=== PATIENT | male | born 1975 | race Two or more races ===

== ENCOUNTER 2016-10-15 15:06 | Inpatient (IN) | payer OTHER ==
[2016-10-15 17:32] VITALS: BMI 28.6
--- NOTE | 2016-10-15 20:11 | HP ---
CIWA Score - CIWA Score Nausea/Vomitin-Mild Nausea/No Vomiting Muscle Tremors: 3 Anxiety: 3 Agitation: 3 Paroxysmal Sweats: 2 Orientation: 0-Oriented Tacttile Disturbances: 0-None Auditory Disturbances: 0-None Visual Disturbances: 0-None Headache: 3-Moderate CIWA-Ar Total Score: 15 Admission ROS S - HPI Chief Complaint: WITHDRAWAL SX Allergies/Adverse Reactions: Allergies Allergy/AdvReac Type Severity Reaction Status Date / Time No Known Allergies Allergy Verified 10/15/16 18:23 History of Present Illness: 40 YEARS OLD MALE WITH LONG HISTORY OF ALCOHOL NICOTINE DEPENDENCE, DENIES MEDICAL ISSUE DENIES PSYCHIATRIC ISSUE IS ADMITTED TO DETOX Exam Limitations: No Limitations - Ebola screening Have you traveled outside of the country in the last 21 days: No Have you had contact with anyone from an Ebola affected area: No Have you been sick,other than usual withdrawal symptoms: No Do you have a fever: No - Review of Systems Constitutional: Chills, Changes in sleep EENT: reports: Dental Problems Respiratory: reports: No Symptoms reported Cardiac: reports: No Symptoms Reported GI: reports: Poor Fluid Intake, Abdominal cramping : reports: No Symptoms Reported Musculoskeletal: reports: No Symptoms Reported Integumentary: reports: No Symptoms Reported Neuro: reports: Tremors Endocrine: reports: No Symptoms Reported Hematology: reports: No Symptoms Reported Psychiatric: reports: Judgement Intact, Mood/Affect Appropiate Other Systems: Reviewed and Negative Patient History - Patient Medical History Hx Anemia: No Hx Asthma: Yes Hx Chronic Obstructive Pulmonary Disease (COPD): No Hx Cancer: No Hx Cardiac Disorders: No Hx Congestive Heart Failure: No Hx Hypertension: No Hx Hypercholesterolemia: No Hx Pacemaker: No HX Cerebrovascular Accident: No Hx Seizures: No Hx Dementia: No Hx Diabetes: No Hx Gastrointestinal Disorders: No Hx Liver Disease: No Hx Genitourinary Disorders: No Hx Sexually Transmitted Disorders: No Hx Renal Disease (ESRD): No Hx Thyroid Disease: No Hx Human Immunodeficiency Virus (HIV): No (NEGATIVE HX) Hx Hepatitis C: No Hx Depression: No Hx Suicide Attempt: No Hx Bipolar Disorder: No Hx Schizophrenia: No - Patient Surgical History Past Surgical History: No Hx Neurologic Surgery: No Hx Cataract Extraction: No Hx Cardiac Surgery: No Hx Lung Surgery: No Hx Breast Surgery: No Hx Breast Biopsy: No Hx Abdominal Surgery: No Hx Appendectomy: No Hx Cholecystectomy: No Hx Genitourinary Surgery: No Hx Orthopedic Surgery: No - PPD History Previous Implant?: Yes Documented Results: Negative w/o proof Implanted On Prior [facility] Admission?: Yes Date: 08/04/15 Results: 0 mm PPD to be Administered?: Yes - Smoking Cessation Smoking history: Current every day smoker Have you smoked in the past 12 months: Yes Aproximately how many cigarettes per day: 20 Cigars Per Day: 0 Hx Chewing Tobacco Use: No Initiated information on smoking cessation: Yes 'Breaking Loose' booklet given: 10/15/16 - Substance & Tx. History Hx Alcohol Use: Yes Hx Substance Use: Yes Substance Use Type: Alcohol, Cocaine, Marijuana Hx Substance Use Treatment: Yes - Substances Abused Alcohol Route: Oral Frequency: Daily Amount used: 3-4 6pks Beer, 2 pts Rum Age of first use: 22 Date of Last Use: 10/15/16 Cocaine Route: Inhalation Frequency: Daily Amount used: $50-60 Age of first use: 22 Date of Last Use: 10/15/16 Marijuana/Hashish Route: Smoking Frequency: Daily Amount used: $50 Age of first use: 22 Date of Last Use: 10/15/16 Family Disease History - Family Disease History Family Disease History: Diabetes: Father (), Other: Mother (LILIA ALEXANDRO SYNDROME--), Brother (ADDICTION) Admission Physical Exam S - Vital Signs Vital Signs: Vital Signs - 24 hr 10/15/16 17:28 Temperature 96.5 F L Pulse Rate 94 H Respiratory 18 Rate Blood Pressure 133/83 - Physical General Appearance: Yes: Nourished, Appropriately Dressed, Alcohol on Breath, Tremorous, Irritable, Sweating, Anxious HEENTM: Yes: Hearing grossly Normal, Normal ENT Inspection, Normocephalic, Normal Voice Respiratory: Yes: Chest Non-Tender, Lungs Clear, Normal Breath Sounds, No Respiratory Distress, No Accessory Muscle Use Neck: Yes: Trachea in good position Breast: Yes: Breasts Symetrical Cardiology: Yes: Regular Rhythm, S1, S2, Tachycardia Abdominal: Yes: Non Tender, Soft Genitourinary: Yes: Within Normal Limits Back: Yes: Normal Inspection Musculoskeletal: Yes: full range of Motion, Gait Steady Extremities: Yes: Normal Range of Motion, Non-Tender, Tremors Neurological: Yes: Alert, Motor Strength 5/5, Normal Mood/Affect, Normal Response Integumentary: Yes: Warm, Moist Lymphatic: Yes: Within Normal Limits - Diagnostic (1) Alcohol dependence with uncomplicated withdrawal Current Visit: Yes Status: Acute (2) Asthma Current Visit: Yes Status: Acute Qualifiers: Asthma severity: mild intermittent Asthma complication type: uncomplicated Qualified Code(s): J45.20 - Mild intermittent asthma, uncomplicated (3) Nicotine dependence Current Visit: Yes Status: Acute Cleared for Admission [facility] - Detox or Rehab [facility] Level of Care: Medically Managed Detox Regimen/Protocol: Librium [facility] Breath Alcohol Content Breath Alcohol Content: 0.017 Urine Drug Screen - Results Drug Screen Negative: No Urine Drug Screen Results: THC-Marijuana, GLORIA-Cocaine, BZO-Benzodiazepines
[2016-10-15] MEDS ORDERED: MENTHOL/PHENOL 1 EACH UD MM PRN (20:45)
[2016-10-15] MEDS ORDERED: LOPERAMIDE HCL 2 MG CAPSULE PO PRN (20:45)
[2016-10-15] MEDS ORDERED: hydrOXYzine PAMOATE 50 MG CAPSULE (FP) PO PRN (20:45)
[2016-10-15] MEDS ORDERED: MAGNESIUM HYDROX 2400MG/30ML ORAL SUSPENSION 30 ML CUP PO PRN (20:45)
[2016-10-15] MEDS ORDERED: MAGNESIUM CITRATE 300 ML BOTTLE PO PRN (20:45)
[2016-10-15] MEDS ORDERED: NICOTINE POLACRILEX 4 MG GUM BC PRN (20:45)
[2016-10-15] MEDS ORDERED: IBUPROFEN 400 MG TABLET (FP) PO PRN (20:45)
[2016-10-15] MEDS ORDERED: chlordiazePOXIDE HCL 25 MG CAPSULE PO PRN (20:45)
[2016-10-15] MEDS ORDERED: MAG HYDROX/AL HYDROX/SIMETH 30 ML UNIT-DOSE CUP PO PRN (20:45)
[2016-10-15] MEDS ORDERED: P-EPHED 60MG/TRIPROLIDI 2.5MG TABLET PO PRN (20:45)
[2016-10-15] MEDS ORDERED: ACETAMINOPHEN 325 MG TABLET (FP) PO PRN (20:45)
[2016-10-15] MEDS ORDERED: guaiFENesin/D-METHORPHAN HB 10 ML UNIT-DOSE CUPS PO PRN (20:45)
[2016-10-15] MEDS ORDERED: ALBUTEROL SO4 6.7 GM HFA INHALER IH PRN (20:51)
[2016-10-15] MEDS ORDERED: ALBUTEROL SO4 2.5/IPRATROPIUM 0.5 INH SOL 3 ML VIAL.NEB. NEB PRN (20:51)
[2016-10-15] MEDS: chlordiazePOXIDE HCL 25 MG CAPSULE PO SCH (22:38)
[2016-10-15] MEDS: THIAMINE HCL 100 MG TABLET (FP) PO SCH (22:38)
[2016-10-15] MEDS: diphenhydrAMINE HCL 50 MG CAPSULE PO PRN (22:38)
[2016-10-16] MEDS: chlordiazePOXIDE HCL 25 MG CAPSULE PO SCH ×4 (05:30→22:12)
[2016-10-16] MEDS: PRENATAL VITAMINS W/ FOLIC ACID TABLET (FP) PO SCH (10:03)
[2016-10-16] MEDS: NICOTINE 21 MG/24 HOURS TOPICAL PATCH TD SCH (10:04)
[2016-10-16 10:05] LABS: MCH 31.4 pg (25.7-33.7); MCHC 33.8 g/dl (32.0-35.9); MEAN PLT VOLUME 8.9 fl (7.5-11.1); PLATELET COUNT 281 K/MM3 (134-434); RDW 12.9 % (11.9-15.9); WHITE BLOOD COUNT 7.1 K/mm3 (4.0-10.0)
[2016-10-16 10:30] LABS: ALBUMIN 3.4 g/dl (3.4-5.0); ALK PHOS 69 U/L (45-117); ANION GAP 10 (8-16); BILIRUBIN,TOTAL 0.6 mg/dL (0.2-1.0); CALCIUM 8.4 mg/dL (8.5-10.1); CO2 27 mmol/L (21-32); GLUCOSE,RANDOM 86 mg/dL (74-106); SGOT/AST 16 U/L (15-37); SGPT/ALT 29 U/L (12-78); TOT PROT 6.5 g/dl (6.4-8.2)
--- NOTE | 2016-10-16 12:03 | EKG ---
Test Reason : Blood Pressure : / mmHG Vent. Rate : 068 BPM Atrial Rate : 068 BPM P-R Int : 140 ms QRS Dur : 098 ms QT Int : 412 ms P-R-T Axes : 014 -39 028 degrees QTc Int : 438 ms NORMAL SINUS RHYTHM LEFT AXIS DEVIATION INCOMPLETE RIGHT BUNDLE BRANCH BLOCK SEPTAL INFARCT , AGE UNDETERMINED ABNORMAL ECG NO PREVIOUS ECGS AVAILABLE Confirmed by KENNA YODER MD ([id number]) on 10/16/2016 12:02:55 PM Referred By: Confirmed By:KENNA YODER MD
--- NOTE | 2016-10-16 15:18 | PN ---
S CIWA - CIWA Score Nausea/Vomitin-No Nausea/No Vomiting Muscle Tremors: 4-Moderate,w/Arms Extend Anxiety: 4-Mod. Anxious/Guarded Agitation: 3 Paroxysmal Sweats: 3 Orientation: 0-Oriented Tacttile Disturbances: 0-None Auditory Disturbances: 0-None Visual Disturbances: 0-None Headache: 0-None Present CIWA-Ar Total Score: 14 [facility] Progress Note (SOAP) Subjective: anxiety,tremors,sweating,interrupted sleep,restless. Objective: 10/16/16 15:19 Vital Signs - 8 hr 10/16/16 09:37 Temperature 97.1 F L Pulse Rate 78 Respiratory 16 Rate Blood Pressure 136/75 Laboratory Tests 10/16/16 10/16/16 10/16/16 07:00 07:00 07:00 WBC 7.1 D RBC 4.90 Hgb 15.4 Hct 45.5 MCV 93.0 MCHC 33.8 RDW 12.9 Plt Count 281 MPV 8.9 Sodium 141 Potassium 4.3 Chloride 104 Carbon Dioxide 27 Anion Gap 10 BUN 15 Creatinine 1.0 Creat Clearance w eGFR > 60 Random Glucose 86 Calcium 8.4 L Total Bilirubin 0.6 D AST 16 D ALT 29 D Alkaline Phosphatase 69 Total Protein 6.5 Albumin 3.4 D RPR Titer Nonreactive labs noted Assessment: 10/16/16 15:20 withdrawal sx Plan: continue detox
[2016-10-16] MEDS: diphenhydrAMINE HCL 50 MG CAPSULE PO PRN (22:12)
[2016-10-16] MEDS: THIAMINE HCL 100 MG TABLET (FP) PO SCH (22:12)
[2016-10-17] MEDS: chlordiazePOXIDE HCL 25 MG CAPSULE PO SCH ×3 (05:43→17:46)
[2016-10-17] MEDS: PRENATAL VITAMINS W/ FOLIC ACID TABLET (FP) PO SCH (10:07)
[2016-10-17] MEDS: NICOTINE 21 MG/24 HOURS TOPICAL PATCH TD SCH (10:07)
[2016-10-17 10:14] LABS: URINE APPEARANCE CLEAR; URINE BILIRUBIN NEGATIVE (NEGATIVE); URINE BLOOD NEGATIVE (NEGATIVE); URINE COLOR STRAW; URINE GLUCOSE (UA) NEGATIVE (NEGATIVE); URINE KETONE NEGATIVE (NEGATIVE); URINE LEUK ESTERASE NEGATIVE (NEGATIVE); URINE NITRITE NEGATIVE (NEGATIVE); URINE PROTEIN NEGATIVE (NEGATIVE); URINE UROBILINOGEN NEGATIVE E.U./dl (0.2-1.0)
--- NOTE | 2016-10-17 10:56 | PN ---
S CIWA - CIWA Score Nausea/Vomitin-Mild Nausea/No Vomiting Muscle Tremors: 4-Moderate,w/Arms Extend Anxiety: 4-Mod. Anxious/Guarded Agitation: 3 Paroxysmal Sweats: 3 Orientation: 0-Oriented Tacttile Disturbances: 0-None Auditory Disturbances: 0-None Visual Disturbances: 0-None Headache: 0-None Present CIWA-Ar Total Score: 15 BHS Progress Note (SOAP) Subjective: SWEATING,INTERRUPTED SLEEP,RESTLESS,TREMORS,ANXIETY. Objective: 10/17/16 10:55 Vital Signs - 8 hr 10/17/16 10/17/16 10/17/16 03:25 06:05 09:15 Temperature 96.1 F L 96.5 F L Pulse Rate 73 86 Respiratory 20 18 18 Rate Blood Pressure 125/83 126/87 10/17/16 09:18 Temperature 96.5 F L Pulse Rate 86 Respiratory 18 Rate Blood Pressure 126/87 Laboratory Tests 10/16/16 10/16/16 10/16/16 07:00 07:00 07:00 WBC 7.1 D RBC 4.90 Hgb 15.4 Hct 45.5 MCV 93.0 MCHC 33.8 RDW 12.9 Plt Count 281 MPV 8.9 Sodium 141 Potassium 4.3 Chloride 104 Carbon Dioxide 27 Anion Gap 10 BUN 15 Creatinine 1.0 Creat Clearance w eGFR > 60 Random Glucose 86 Calcium 8.4 L Total Bilirubin 0.6 D AST 16 D ALT 29 D Alkaline Phosphatase 69 Total Protein 6.5 Albumin 3.4 D Urine Color Urine Appearance Urine pH Ur Specific [place] Urine Protein Urine Glucose (UA) Urine Ketones Urine Blood Urine Nitrite Urine Bilirubin Urine Urobilinogen Ur Leukocyte Esterase RPR Titer Nonreactive 10/17/16 08:00 WBC RBC Hgb Hct MCV MCHC RDW Plt Count MPV Sodium Potassium Chloride Carbon Dioxide Anion Gap BUN Creatinine Creat Clearance w eGFR Random Glucose Calcium Total Bilirubin AST ALT Alkaline Phosphatase Total Protein Albumin Urine Color Straw Urine Appearance Clear Urine pH 6.0 Ur Specific [place] 1.018 Urine Protein Negative Urine Glucose (UA) Negative Urine Ketones Negative Urine Blood Negative Urine Nitrite Negative Urine Bilirubin Negative Urine Urobilinogen Negative Ur Leukocyte Esterase Negative RPR Titer LABS NOTED Assessment: 10/17/16 10:56 WITHDRAWAL SX. Plan: CONTINUE DETOX
[2016-10-17] MEDS: chlordiazePOXIDE 5 MG CAPSULE PO SCH (22:10)
[2016-10-17] MEDS: THIAMINE HCL 100 MG TABLET (FP) PO SCH (22:10)
[2016-10-17] MEDS: diphenhydrAMINE HCL 50 MG CAPSULE PO PRN (22:11)
[2016-10-18] MEDS: chlordiazePOXIDE 5 MG CAPSULE PO SCH ×3 (06:04→17:15)
[2016-10-18] MEDS: NICOTINE 21 MG/24 HOURS TOPICAL PATCH TD SCH (10:07)
[2016-10-18] MEDS: PRENATAL VITAMINS W/ FOLIC ACID TABLET (FP) PO SCH (10:07)
--- NOTE | 2016-10-18 10:40 | PN ---
B[facility] Progress Note (SOAP) Subjective: nausea, sweats, interrupted sleep, anxiety, tremors Objective: 10/18/16 10:40 Vital Signs - 8 hr 10/18/16 10/18/16 10/18/16 03:32 06:20 09:46 Temperature 96.1 F L 97.6 F Pulse Rate 59 L 89 Respiratory 18 18 18 Rate Blood Pressure 123/82 144/98 hypertensive Assessment: 10/18/16 10:40 withdrawal sx Plan: cont detox, fluids, encourage ambualtion
[2016-10-18] MEDS: chlordiazePOXIDE HCL 10 MG CAPSULE PO SCH (22:17)
[2016-10-18] MEDS: diphenhydrAMINE HCL 50 MG CAPSULE PO PRN (22:17)
[2016-10-18] MEDS: THIAMINE HCL 100 MG TABLET (FP) PO SCH (22:17)
[2016-10-19] MEDS: chlordiazePOXIDE HCL 10 MG CAPSULE PO SCH (05:55)
[2016-10-19 06:32] VITALS: BP 132/85; PULSE 67; TEMP 98.1
--- NOTE | 2016-10-19 08:47 | PN ---
BHS Progress Note (SOAP) Subjective: no complaints Objective: 10/19/16 08:47 Vital Signs - 8 hr 10/19/16 10/19/16 03:30 06:31 Temperature 98.1 F Pulse Rate 67 Respiratory 18 18 Rate Blood Pressure 132/85 Laboratory Tests 10/16/16 10/16/16 10/16/16 07:00 07:00 07:00 WBC 7.1 D RBC 4.90 Hgb 15.4 Hct 45.5 MCV 93.0 MCHC 33.8 RDW 12.9 Plt Count 281 MPV 8.9 Sodium 141 Potassium 4.3 Chloride 104 Carbon Dioxide 27 Anion Gap 10 BUN 15 Creatinine 1.0 Creat Clearance w eGFR > 60 Random Glucose 86 Calcium 8.4 L Total Bilirubin 0.6 D AST 16 D ALT 29 D Alkaline Phosphatase 69 Total Protein 6.5 Albumin 3.4 D Urine Color Urine Appearance Urine pH Ur Specific [place] Urine Protein Urine Glucose (UA) Urine Ketones Urine Blood Urine Nitrite Urine Bilirubin Urine Urobilinogen Ur Leukocyte Esterase RPR Titer Nonreactive 10/17/16 08:00 WBC RBC Hgb Hct MCV MCHC RDW Plt Count MPV Sodium Potassium Chloride Carbon Dioxide Anion Gap BUN Creatinine Creat Clearance w eGFR Random Glucose Calcium Total Bilirubin AST ALT Alkaline Phosphatase Total Protein Albumin Urine Color Straw Urine Appearance Clear Urine pH 6.0 Ur Specific [place] 1.018 Urine Protein Negative Urine Glucose (UA) Negative Urine Ketones Negative Urine Blood Negative Urine Nitrite Negative Urine Bilirubin Negative Urine Urobilinogen Negative Ur Leukocyte Esterase Negative RPR Titer Assessment: 10/19/16 08:47 completed detox, medically stable Plan: d/c today, f/u PCP for medical post discharge, reviewed labs
--- NOTE | 2016-10-19 08:50 | DS ---
[facility] Detox Discharge Summary Admission Date: 10/15/16 Discharge Date: 10/19/16 - History Present History: Alcohol Dependence, Cannabis Dependence, Cocaine Dependence Pertinent Past History: nicotine dependence, anxieety, depression and insomnia - Physical Exam Results Vital Signs: Vital Signs Temperature 98.1 F 10/19/16 06:31 Pulse Rate 67 10/19/16 06:31 Respiratory Rate 18 10/19/16 06:31 Blood Pressure 132/85 10/19/16 06:31 O2 Sat by Pulse Oximetry (%) Pertinent Admission Physical Exam Findings: withdrawal sx - Treatment Hospital Course: Detox Protocol Followed, Detoxed Safely, Responded well, Discharged Condition Good, Rehab Referral Accepted - Medication Discharge Medications: Ambulatory Orders Albuterol Sulfate Inhaler - [Ventolin HFA Inhaler -] 2 inh IH Q4H PRN #1 - Diagnosis (1) Alcohol dependence with uncomplicated withdrawal Current Visit: Yes Status: Chronic (2) Asthma Current Visit: Yes Status: Acute Qualifiers: Asthma severity: mild intermittent Asthma complication type: uncomplicated Qualified Code(s): J45.20 - Mild intermittent asthma, uncomplicated (3) Nicotine dependence Current Visit: Yes Status: Chronic (4) Cannabis dependence Current Visit: Yes Status: Chronic (5) Cocaine dependence Current Visit: Yes Status: Chronic - AMA Did Patient Leave Against Medical Advice: No
== END 2016-10-19 09:44 | disposition home or self-care (01) | DRG 774 ==
LOC: YASAS 15:06 → Y3N 19:40
PROVIDERS: ADMIT Internal Medicine; ATTEND Internal Medicine
PROC: HZ2ZZZZ Detoxification Services for Substance Abuse Treatment (ICD-10-PCS; principal; 2016-10-19)
DX: F10.230 Alcohol dependence with withdrawal, uncomplicated (principal); F14.20 Cocaine dependence, uncomplicated; F12.20 Cannabis dependence, uncomplicated; F17.210 Nicotine dependence, cigarettes, uncomplicated; J45.20 Mild intermittent asthma, uncomplicated
CPT/HCPCS: 36415; 80053; 81003; 85027; 86593; 93005; 93010

== ENCOUNTER 2024-01-06 10:47 | Inpatient (IN) | payer OTHER ==
[2024-01-06 11:14] VITALS: BMI 23.0
[2024-01-06] MEDS ORDERED: BENZONATATE 200 MG CAPSULE PO PRN (12:57)
[2024-01-06] MEDS ORDERED: METHOCARBAMOL 500 MG TABLET PO PRN (12:57)
[2024-01-06] MEDS ORDERED: chlordiazePOXIDE HCL 25 MG CAPSULE PO PRN (12:57)
[2024-01-06] MEDS ORDERED: DICYCLOMINE HCL 10 MG CAPSULE PO PRN (12:57)
[2024-01-06] MEDS ORDERED: MAG HYDROX/AL HYDROX/SIMETH 30 ML UNIT-DOSE CUP PO PRN (12:57)
[2024-01-06] MEDS ORDERED: NALOXONE HCL 0.4 MG/ML VIAL IM PRN (12:57)
[2024-01-06] MEDS ORDERED: BENZOCAINE/MENTHOL (CHLORASEPTIC ) LOZENGE MM PRN (12:57)
[2024-01-06] MEDS ORDERED: NALOXONE HCL (KLOXXADO) 8 MG SPRAY NS PRN (12:57)
[2024-01-06] MEDS ORDERED: LOPERAMIDE HCL 2 MG CAPSULE PO PRN (12:57)
[2024-01-06] MEDS ORDERED: ACETAMINOPHEN 325 MG TABLET (FP) PO PRN (12:57)
[2024-01-06] MEDS ORDERED: guaiFENesin 600 MG TABLET.ER (FP) PO PRN (12:57)
[2024-01-06] MEDS ORDERED: POLYETHYLENE GLYCOL (HEALTHYLAX) 3350 17 GM PACKET PO PRN (12:57)
[2024-01-06] MEDS ORDERED: IBUPROFEN 400 MG TABLET (FP) PO PRN (12:57)
[2024-01-06] MEDS ORDERED: MAGNESIUM HYDROX 2400MG/30ML ORAL SUSPENSION 30 ML CUP PO PRN (12:57)
[2024-01-06] MEDS ORDERED: hydrOXYzine PAMOATE 25 MG CAPSULE (FP) PO PRN (12:57)
[2024-01-06] MEDS ORDERED: BISMUTH SUBSALICYLATE 524 MG/30 ML PO PRN (12:57)
[2024-01-06] MEDS ORDERED: ONDANSETRON *ODT* 4 MG TABLET SL PRN (12:57)
[2024-01-06] MEDS ORDERED: ALBUTEROL SO4 HFA INHALER IH PRN (12:59)
[2024-01-06] MEDS ORDERED: NICOTINE 21 MG/24 HOURS TOPICAL PATCH ONE (13:53)
[2024-01-06] MEDS ORDERED: PRENATAL VITAMINS W/ FOLIC ACID TABLET (FP) PO ONE (13:53)
[2024-01-06] MEDS: NICOTINE 21 MG/24 HOURS TOPICAL PATCH TD SCH (13:57)
[2024-01-06] MEDS: PRENATAL VITAMINS W/ FOLIC ACID TABLET (FP) PO SCH (13:57)
[2024-01-06] MEDS: chlordiazePOXIDE HCL 25 MG CAPSULE PO SCH (17:24)
[2024-01-06] MEDS: THIAMINE 100 MG TABLET PO SCH (22:19)
[2024-01-06] MEDS: MELATONIN 5 MG TABLETS PO SCH (22:19)
[2024-01-07 11:23] LABS: HEMATOCRIT 44.4 % (35.4-49); HEMOGLOBIN 14.8 GM/dL (11.7-16.9); MCH 30.8 pg (25.7-33.7); MCHC 33.3 g/dl (32.0-35.9); MEAN CELL VOLUME 92.3 fl (80-96); MEAN PLT VOLUME 9.3 fl (7.5-11.1); PLATELET COUNT 299 10^3/uL (134-434); RBC 4.81 M/mm3 (4.00-5.60); RDW 12.6 % (11.9-15.9); WHITE BLOOD COUNT 5.1 K/mm3 (4.0-10.0)
[2024-01-07 12:06] LABS: POTASSIUM 4.7 mmol/L (3.5-5.1)
[2024-01-07 12:08] LABS: CALCIUM 9.1 mg/dL (8.5-10.1)
[2024-01-07 12:09] LABS: ALBUMIN 3.6 g/dl (3.4-5.0); BLOOD UREA NITROGEN 14.9 mg/dL (7-18)
[2024-01-07 12:12] LABS: CREATININE 0.8 mg/dL (0.55-1.3)
[2024-01-07 12:14] LABS: BILIRUBIN,TOTAL 0.3 mg/dL (0.2-1); TOT PROT 7.5 g/dl (6.4-8.2)
[2024-01-08] MEDS: chlordiazePOXIDE HCL 25 MG CAPSULE PO SCH (05:38)
[2024-01-09] MEDS ORDERED: chlordiazePOXIDE HCL 10 MG CAPSULE PO PRN
[2024-01-09] MEDS: chlordiazePOXIDE HCL 10 MG CAPSULE PO SCH (05:53)
[2024-01-09] MEDS: IBUPROFEN 600 MG TABLET (FP) PO PRN (10:19)
[2024-01-10] MEDS: chlordiazePOXIDE HCL 10 MG CAPSULE PO SCH (05:28)
[2024-01-11] MEDS: chlordiazePOXIDE HCL 10 MG CAPSULE PO ONE (05:27)
[2024-01-11 06:24] VITALS: RESP 18
[2024-01-11 09:03] VITALS: BP 124/69; PULSE 73; TEMP 98.3
== END 2024-01-11 09:45 | disposition home or self-care (01) | DRG 774 ==
LOC: YASAS 10:47 → Y3N 13:22
PROVIDERS: ADMIT Allergy & Immunology; ATTEND Surgery
PROC: HZ2ZZZZ Detoxification Services for Substance Abuse Treatment (ICD-10-PCS; principal; 2024-01-06)
DX: F10.230 Alcohol dependence with withdrawal, uncomplicated (principal); F14.20 Cocaine dependence, uncomplicated; F12.20 Cannabis dependence, uncomplicated; F17.210 Nicotine dependence, cigarettes, uncomplicated; J45.20 Mild intermittent asthma, uncomplicated; R76.8 Other specified abnormal immunological findings in serum; Z86.19 Personal history of other infectious and parasitic diseases; Z28.310 Unvaccinated for COVID-19; Z28.9 Immunization not carried out for unspecified reason
CPT/HCPCS: 36415; 80053; 80307; 82140; 85027; 86593; 86780; 93005; 93010

== ENCOUNTER 2024-04-08 12:33 | Inpatient (IN) | payer OTHER ==
[2024-04-08 13:21] VITALS: BMI 23.3
[2024-04-08] MEDS ORDERED: guaiFENesin 600 MG TABLET.ER (FP) PO PRN (15:03)
[2024-04-08] MEDS ORDERED: LOPERAMIDE HCL 2 MG CAPSULE PO PRN (15:03)
[2024-04-08] MEDS ORDERED: ONDANSETRON *ODT* 4 MG TABLET SL PRN (15:03)
[2024-04-08] MEDS ORDERED: BISMUTH SUBSALICYLATE 262 MG/15 ML BTL PO PRN (15:03)
[2024-04-08] MEDS ORDERED: DICYCLOMINE HCL 10 MG CAPSULE PO PRN (15:03)
[2024-04-08] MEDS ORDERED: NALOXONE (NARCAN) HCL 4 MG/0.1 ML SPRAY NS PRN (15:03)
[2024-04-08] MEDS ORDERED: MAGNESIUM HYDROX 2400MG/30ML ORAL SUSPENSION 30 ML CUP PO PRN (15:03)
[2024-04-08] MEDS ORDERED: MAG HYDROX/AL HYDROX/SIMETH 30 ML UNIT-DOSE CUP PO PRN (15:03)
[2024-04-08] MEDS ORDERED: POLYETHYLENE GLYCOL (HEALTHYLAX) 3350 17 GM PACKET PO PRN (15:03)
[2024-04-08] MEDS ORDERED: NALOXONE HCL 0.4 MG/ML VIAL IM PRN (15:03)
[2024-04-08] MEDS ORDERED: BENZONATATE 200 MG CAPSULE PO PRN (15:03)
[2024-04-08] MEDS ORDERED: chlordiazePOXIDE HCL 25 MG CAPSULE PO PRN (15:03)
[2024-04-08] MEDS ORDERED: BENZOCAINE/MENTHOL (CHLORASEPTIC ) LOZENGE MM PRN (15:03)
[2024-04-08] MEDS ORDERED: IBUPROFEN 400 MG TABLET (FP) PO ONE (15:34)
[2024-04-08] MEDS ORDERED: NICOTINE 14 MG/24 HOURS TOPICAL PATCH TD ONE (15:34)
[2024-04-08] MEDS ORDERED: PRENATAL VITAMINS W/ FOLIC ACID TABLET (FP) PO ONE (15:35)
[2024-04-08] MEDS: PRENATAL VITAMINS W/ FOLIC ACID TABLET (FP) PO SCH (15:38)
[2024-04-08] MEDS: NICOTINE 14 MG/24 HOURS TOPICAL PATCH TD SCH (15:38)
[2024-04-08] MEDS: IBUPROFEN 400 MG TABLET (FP) PO PRN (15:39)
[2024-04-08] MEDS: chlordiazePOXIDE HCL 25 MG CAPSULE PO SCH (17:21)
[2024-04-08] MEDS: THIAMINE 100 MG TABLET PO SCH (22:26)
[2024-04-08] MEDS: MELATONIN 5 MG TABLETS PO SCH (22:27)
[2024-04-09] MEDS: IBUPROFEN 600 MG TABLET (FP) PO PRN (03:23)
[2024-04-09] MEDS ORDERED: ALBUTEROL SO4 HFA INHALER IH PRN (07:46)
[2024-04-09] MEDS: METHOCARBAMOL 500 MG TABLET PO PRN (10:11)
[2024-04-09] MEDS: hydrOXYzine PAMOATE 25 MG CAPSULE (FP) PO PRN (10:11)
[2024-04-09 14:25] LABS: CHLORIDE 108 mmol/L (98-107); POTASSIUM 3.9 mmol/L (3.5-5.1); SODIUM 139 mmol/L (136-145)
[2024-04-09 14:27] LABS: CALCIUM 8.6 mg/dL (8.5-10.1)
[2024-04-09 14:28] LABS: ALBUMIN 3.2 g/dl (3.4-5.0); ANION GAP 5 mmol/L (4-13); BLOOD UREA NITROGEN 16.6 mg/dL (7-18); CO2 26 mmol/L (21-32); GLUCOSE,RANDOM 129 mg/dL (74-106)
[2024-04-09 14:30] LABS: HEMATOCRIT 40.5 % (35.4-49); HEMOGLOBIN 14.1 GM/dL (11.7-16.9); MCH 31.1 pg (25.7-33.7); MCHC 34.8 g/dl (32.0-35.9); MEAN CELL VOLUME 89.5 fl (80-96); MEAN PLT VOLUME 8.4 fl (7.5-11.1); PLATELET COUNT 283 10^3/uL (134-434); RBC 4.52 M/mm3 (4.00-5.60); RDW 12.7 % (11.9-15.9); WHITE BLOOD COUNT 9.1 K/mm3 (4.0-10.0)
[2024-04-09 14:31] LABS: CREATININE 0.6 mg/dL (0.55-1.3); SGOT/AST 19 U/L (15-37); SGPT/ALT 31 U/L (13-61)
[2024-04-09 14:32] LABS: TOT PROT 6.4 g/dl (6.4-8.2)
[2024-04-09 14:34] LABS: ALK PHOS 82 U/L (45-117)
[2024-04-09 14:45] LABS: BILIRUBIN,TOTAL 0.2 mg/dL (0.2-1)
[2024-04-10] MEDS: chlordiazePOXIDE HCL 25 MG CAPSULE PO SCH (05:08)
[2024-04-10] MEDS: ACETAMINOPHEN 325 MG TABLET (FP) PO PRN (10:28)
[2024-04-11] MEDS ORDERED: chlordiazePOXIDE HCL 10 MG CAPSULE PO PRN
[2024-04-11] MEDS: chlordiazePOXIDE HCL 10 MG CAPSULE PO SCH (04:17)
[2024-04-11 13:00] VITALS: BP 114/70; PULSE 86; RESP 18; TEMP 97.1
[2024-04-11] MEDS: PENICILLIN G BENZATHINE 2,400,000 UNIT/4 ML PFS IM ONE (15:17)
[2024-04-12] MEDS ORDERED: chlordiazePOXIDE HCL 10 MG CAPSULE PO SCH (05:00)
[2024-04-13] MEDS ORDERED: chlordiazePOXIDE HCL 10 MG CAPSULE PO ONE (05:00)
== END 2024-04-11 15:19 | disposition home or self-care (01) | DRG 774 ==
LOC: YASAS 12:33 → Y3N 15:17 → Y6N 15:27
PROVIDERS: ADMIT Allergy & Immunology; ATTEND Surgery
PROC: HZ2ZZZZ Detoxification Services for Substance Abuse Treatment (ICD-10-PCS; principal; 2024-04-08)
DX: F10.230 Alcohol dependence with withdrawal, uncomplicated (principal); F14.20 Cocaine dependence, uncomplicated; F12.20 Cannabis dependence, uncomplicated; F17.210 Nicotine dependence, cigarettes, uncomplicated; F19.282 Other psychoactive substance dependence with psychoactive substance-induced sleep disorder; F19.280 Other psychoactive substance dependence with psychoactive substance-induced anxiety disorder; F41.9 Anxiety disorder, unspecified; J45.20 Mild intermittent asthma, uncomplicated; Z86.19 Personal history of other infectious and parasitic diseases
CPT/HCPCS: 36415; 80053; 80305; 80307; 82140; 85027; 86593; 86780; 93005; 93010

== ENCOUNTER 2024-05-14 11:16 | Inpatient (IN) | payer OTHER ==
[2024-05-14 11:50] VITALS: BMI 22.9
[2024-05-14] MEDS ORDERED: NICOTINE POLACRILEX 2 MG LOZENGE BC PRN (12:11)
[2024-05-14] MEDS ORDERED: DICYCLOMINE HCL 10 MG CAPSULE PO PRN (12:11)
[2024-05-14] MEDS ORDERED: BISMUTH SUBSALICYLATE 262 MG/15 ML BTL PO PRN (12:11)
[2024-05-14] MEDS ORDERED: BENZONATATE 200 MG CAPSULE PO PRN (12:11)
[2024-05-14] MEDS ORDERED: LOPERAMIDE HCL 2 MG CAPSULE PO PRN (12:11)
[2024-05-14] MEDS ORDERED: IBUPROFEN 400 MG TABLET (FP) PO PRN (12:11)
[2024-05-14] MEDS ORDERED: ACETAMINOPHEN 325 MG TABLET (FP) PO PRN (12:11)
[2024-05-14] MEDS ORDERED: NICOTINE POLACRILEX 2 MG GUM BUC PRN (12:11)
[2024-05-14] MEDS ORDERED: guaiFENesin 600 MG TABLET.ER (FP) PO PRN (12:11)
[2024-05-14] MEDS ORDERED: POLYETHYLENE GLYCOL (HEALTHYLAX) 3350 17 GM PACKET PO PRN (12:11)
[2024-05-14] MEDS ORDERED: MAGNESIUM HYDROX 2400MG/30ML ORAL SUSPENSION 30 ML CUP PO PRN (12:11)
[2024-05-14] MEDS ORDERED: NALOXONE HCL 0.4 MG/ML VIAL IM PRN (12:11)
[2024-05-14] MEDS ORDERED: ONDANSETRON *ODT* 4 MG TABLET SL PRN (12:11)
[2024-05-14] MEDS ORDERED: BENZOCAINE/MENTHOL (CHLORASEPTIC ) LOZENGE MM PRN (12:11)
[2024-05-14] MEDS ORDERED: NALOXONE (NARCAN) HCL 4 MG/0.1 ML SPRAY NS PRN (12:11)
[2024-05-14] MEDS ORDERED: IBUPROFEN 600 MG TABLET (FP) PO PRN (12:11)
[2024-05-14] MEDS ORDERED: hydrOXYzine PAMOATE 25 MG CAPSULE (FP) PO PRN (12:11)
[2024-05-14] MEDS ORDERED: MAG HYDROX/AL HYDROX/SIMETH 30 ML UNIT-DOSE CUP PO PRN (12:11)
[2024-05-14] MEDS ORDERED: PRENATAL VITAMINS W/ FOLIC ACID TABLET (FP) PO ONE (12:27)
[2024-05-14] MEDS: PRENATAL VITAMINS W/ FOLIC ACID TABLET (FP) PO SCH (12:29)
[2024-05-14] MEDS ORDERED: ALBUTEROL SO4 HFA INHALER IH PRN (15:28)
[2024-05-14] MEDS: chlordiazePOXIDE HCL 25 MG CAPSULE PO PRN (18:05)
[2024-05-14] MEDS: MELATONIN 5 MG TABLETS PO SCH (22:21)
[2024-05-14] MEDS: METHOCARBAMOL 500 MG TABLET PO PRN (22:21)
[2024-05-14] MEDS: THIAMINE 100 MG TABLET PO SCH (22:22)
[2024-05-14] MEDS: chlordiazePOXIDE HCL 25 MG CAPSULE PO SCH (22:22)
[2024-05-15 11:39] LABS: HEMATOCRIT 45.5 % (35.4-49); HEMOGLOBIN 15.3 GM/dL (11.7-16.9); MCH 30.7 pg (25.7-33.7); MCHC 33.6 g/dl (32.0-35.9); MEAN CELL VOLUME 91.4 fl (80-96); MEAN PLT VOLUME 8.8 fl (7.5-11.1); PLATELET COUNT 409 10^3/uL (134-434); RBC 4.98 M/mm3 (4.00-5.60); WHITE BLOOD COUNT 7.9 K/mm3 (4.0-10.0)
[2024-05-15 11:42] LABS: POTASSIUM 4.3 mmol/L (3.5-5.1)
[2024-05-15 11:48] LABS: ALBUMIN 3.6 g/dl (3.4-5.0); BLOOD UREA NITROGEN 11.8 mg/dL (7-18)
[2024-05-15 11:50] LABS: BILIRUBIN,TOTAL 0.5 mg/dL (0.2-1); TOT PROT 7.6 g/dl (6.4-8.2)
[2024-05-15 11:52] LABS: CREATININE 0.7 mg/dL (0.55-1.3)
[2024-05-16] MEDS: chlordiazePOXIDE HCL 25 MG CAPSULE PO SCH (05:27)
[2024-05-16] MEDS: PENICILLIN G BENZATHINE 2,400,000 UNIT/4 ML PFS IM ONE (15:08)
[2024-05-17] MEDS ORDERED: chlordiazePOXIDE HCL 10 MG CAPSULE PO PRN
[2024-05-17] MEDS: chlordiazePOXIDE HCL 10 MG CAPSULE PO SCH (05:55)
[2024-05-18] MEDS: chlordiazePOXIDE HCL 10 MG CAPSULE PO SCH (05:34)
[2024-05-19] MEDS: chlordiazePOXIDE HCL 10 MG CAPSULE PO ONE (05:14)
[2024-05-19 09:16] VITALS: BP 120/64; PULSE 66; RESP 16; TEMP 97.5
== END 2024-05-19 11:11 | disposition other institution (70) | DRG 774 ==
LOC: YASAS 11:16 → Y3N 12:20
PROVIDERS: ADMIT Allergy & Immunology; ATTEND Surgery
PROC: HZ2ZZZZ Detoxification Services for Substance Abuse Treatment (ICD-10-PCS; principal; 2024-05-14)
DX: F10.230 Alcohol dependence with withdrawal, uncomplicated (principal); F13.20 Sedative, hypnotic or anxiolytic dependence, uncomplicated; F14.20 Cocaine dependence, uncomplicated; F17.210 Nicotine dependence, cigarettes, uncomplicated; J45.909 Unspecified asthma, uncomplicated; R76.8 Other specified abnormal immunological findings in serum
CPT/HCPCS: 36415; 80053; 80305; 80307; 85027; 86593; 86780; 87811

== ENCOUNTER 2024-05-19 11:33 | Inpatient (IN) | payer OTHER ==
[2024-05-19] MEDS ORDERED: IBUPROFEN 600 MG TABLET (FP) PO PRN (14:36)
[2024-05-19] MEDS ORDERED: MAGNESIUM HYDROX 2400MG/30ML ORAL SUSPENSION 30 ML CUP PO PRN (14:36)
[2024-05-19] MEDS ORDERED: NALOXONE HCL 0.4 MG/ML VIAL IVPUSH PRN (14:36)
[2024-05-19] MEDS ORDERED: NALOXONE (NARCAN) HCL 4 MG/0.1 ML SPRAY NS PRN (14:36)
[2024-05-19] MEDS ORDERED: LOPERAMIDE HCL 2 MG CAPSULE PO PRN (14:36)
[2024-05-19] MEDS ORDERED: hydrOXYzine PAMOATE 25 MG CAPSULE (FP) PO PRN (14:36)
[2024-05-19] MEDS ORDERED: POLYETHYLENE GLYCOL (HEALTHYLAX) 3350 17 GM PACKET PO PRN (14:36)
[2024-05-19] MEDS ORDERED: IBUPROFEN 400 MG TABLET (FP) PO PRN (14:36)
[2024-05-19] MEDS ORDERED: MAG HYDROX/AL HYDROX/SIMETH 30 ML UNIT-DOSE CUP PO PRN (14:36)
[2024-05-19] MEDS ORDERED: BENZOCAINE/MENTHOL (CHLORASEPTIC ) LOZENGE MM PRN (14:36)
[2024-05-19] MEDS ORDERED: guaiFENesin 600 MG TABLET.ER (FP) PO PRN (14:36)
[2024-05-19] MEDS ORDERED: BENZONATATE 200 MG CAPSULE PO PRN (14:36)
[2024-05-19] MEDS ORDERED: NICOTINE 14 MG/24 HOURS TOPICAL PATCH TD PRN (14:42)
[2024-05-19] MEDS ORDERED: NICOTINE POLACRILEX 4 MG GUM BUC PRN (14:42)
[2024-05-19] MEDS ORDERED: NICOTINE POLACRILEX 4 MG LOZENGE BC PRN (14:42)
[2024-05-19] MEDS ORDERED: ALBUTEROL SO4 HFA INHALER IH PRN (14:46)
[2024-05-19] MEDS: MELATONIN 5 MG TABLETS PO SCH (21:28)
[2024-05-19] MEDS: THIAMINE 100 MG TABLET PO SCH (21:28)
[2024-05-19] MEDS: METHOCARBAMOL 500 MG TABLET PO PRN (21:29)
[2024-05-20] MEDS: PRENATAL VITAMINS W/ FOLIC ACID TABLET (FP) PO SCH (09:39)
[2024-05-20] MEDS ORDERED: PRENATAL VITAMINS W/ FOLIC ACID TABLET (FP) PO PRN (14:57)
[2024-05-24] MEDS: ACETAMINOPHEN 325 MG TABLET (FP) PO PRN (09:12)
[2024-05-24] MEDS: PENICILLIN G BENZATHINE 2,400,000 UNIT/4 ML PFS IM ONE (13:38)
[2024-05-26] MEDS: METHOCARBAMOL 500 MG TABLET PO PRN (21:29)
[2024-05-31 06:34] VITALS: BP 126/82; PULSE 60; RESP 16; TEMP 97.4
[2024-05-31] MEDS: PENICILLIN G BENZATHINE 2,400,000 UNIT/4 ML PFS IM ONE (09:07)
== END 2024-05-31 09:20 | disposition home or self-care (01) | DRG 772 ==
LOC: YASAS 11:33 → Y3E 11:35
PROVIDERS: ADMIT Psychiatry & Neurology Pain Medicine; ATTEND Psychiatry & Neurology Pain Medicine
PROC: HZ42ZZZ Group Counseling for Substance Abuse Treatment, Cognitive-Behavioral (ICD-10-PCS; principal; 2024-05-19)
DX: F10.20 Alcohol dependence, uncomplicated (principal); F14.20 Cocaine dependence, uncomplicated; F12.20 Cannabis dependence, uncomplicated; F17.210 Nicotine dependence, cigarettes, uncomplicated; J45.20 Mild intermittent asthma, uncomplicated
CPT/HCPCS: 82140

== ENCOUNTER 2024-07-14 09:43 | Inpatient (IN) | payer OTHER ==
[2024-07-14 10:00] VITALS: BMI 23.7
[2024-07-14] MEDS ORDERED: ALBUTEROL SO4 HFA INHALER IH PRN (10:12)
[2024-07-14] MEDS ORDERED: NICOTINE POLACRILEX 2 MG LOZENGE BC PRN (10:16)
[2024-07-14] MEDS ORDERED: BISMUTH SUBSALICYLATE 262 MG/15 ML BTL PO PRN (10:16)
[2024-07-14] MEDS ORDERED: P-EPHED 60MG/TRIPROLIDI 2.5MG TABLET PO PRN (10:16)
[2024-07-14] MEDS ORDERED: DICYCLOMINE HCL 10 MG CAPSULE PO PRN (10:16)
[2024-07-14] MEDS ORDERED: ACETAMINOPHEN 325 MG TABLET (FP) PO PRN (10:16)
[2024-07-14] MEDS ORDERED: MAG HYDROX/AL HYDROX/SIMETH 30 ML UNIT-DOSE CUP PO PRN (10:16)
[2024-07-14] MEDS ORDERED: BENZONATATE 200 MG CAPSULE PO PRN (10:16)
[2024-07-14] MEDS ORDERED: guaiFENesin 600 MG TABLET.ER (FP) PO PRN (10:16)
[2024-07-14] MEDS ORDERED: NICOTINE POLACRILEX 2 MG GUM BUC PRN (10:16)
[2024-07-14] MEDS ORDERED: POLYETHYLENE GLYCOL (HEALTHYLAX) 3350 17 GM PACKET PO PRN (10:16)
[2024-07-14] MEDS ORDERED: NALOXONE (NYS OPIOID OVERDOSE PROGRAM) 4 MG/0.1 ML SPRAY NS PRN (10:16)
[2024-07-14] MEDS ORDERED: IBUPROFEN 600 MG TABLET (FP) PO PRN (10:16)
[2024-07-14] MEDS ORDERED: MAGNESIUM HYDROX 2400MG/30ML ORAL SUSPENSION 30 ML CUP PO PRN (10:16)
[2024-07-14] MEDS ORDERED: hydrOXYzine PAMOATE 25 MG CAPSULE (FP) PO PRN (10:16)
[2024-07-14] MEDS ORDERED: LOPERAMIDE HCL 2 MG CAPSULE PO PRN (10:16)
[2024-07-14] MEDS ORDERED: ONDANSETRON *ODT* 4 MG TABLET SL PRN (10:16)
[2024-07-14] MEDS ORDERED: BENZOCAINE/MENTHOL (CHLORASEPTIC ) LOZENGE MM PRN (10:16)
[2024-07-14] MEDS ORDERED: IBUPROFEN 400 MG TABLET (FP) PO PRN (10:16)
[2024-07-14] MEDS: chlordiazePOXIDE HCL 25 MG CAPSULE PO PRN (15:33)
[2024-07-14] MEDS: chlordiazePOXIDE HCL 25 MG CAPSULE PO SCH (17:22)
[2024-07-14] MEDS: THIAMINE 100 MG TABLET PO SCH (22:18)
[2024-07-14] MEDS: MELATONIN 5 MG TABLETS PO SCH (22:18)
[2024-07-15] MEDS: PRENATAL VITAMINS W/ FOLIC ACID TABLET (FP) PO SCH (10:31)
[2024-07-15] MEDS: METHOCARBAMOL 500 MG TABLET PO PRN (10:33)
[2024-07-15 12:23] LABS: HEMATOCRIT 42.3 % (35.4-49); HEMOGLOBIN 14.3 GM/dL (11.7-16.9); MCH 30.5 pg (25.7-33.7); MCHC 33.8 g/dl (32.0-35.9); MEAN CELL VOLUME 90.3 fl (80-96); MEAN PLT VOLUME 8.8 fl (7.5-11.1); PLATELET COUNT 313 10^3/uL (134-434); RBC 4.68 M/mm3 (4.00-5.60); RDW 13.1 % (11.9-15.9); WHITE BLOOD COUNT 6.2 K/mm3 (4.0-10.0)
[2024-07-15 12:28] LABS: POTASSIUM 4.2 mmol/L (3.5-5.1)
[2024-07-15 12:32] LABS: ALBUMIN 3.3 g/dl (3.4-5.0)
[2024-07-15 12:35] LABS: CREATININE 0.6 mg/dL (0.55-1.3)
[2024-07-15 12:37] LABS: BILIRUBIN,TOTAL 0.3 mg/dL (0.2-1); TOT PROT 6.5 g/dl (6.4-8.2)
[2024-07-15 12:41] LABS: BLOOD UREA NITROGEN 18.7 mg/dL (7-18)
[2024-07-15] MEDS: PENICILLIN G BENZATHINE 2,400,000 UNIT/4 ML PFS IM ONE (19:23)
[2024-07-16] MEDS: chlordiazePOXIDE HCL 25 MG CAPSULE PO SCH (05:40)
[2024-07-17] MEDS ORDERED: chlordiazePOXIDE HCL 10 MG CAPSULE PO PRN
[2024-07-17] MEDS: chlordiazePOXIDE HCL 10 MG CAPSULE PO SCH (05:55)
[2024-07-18] MEDS: chlordiazePOXIDE HCL 10 MG CAPSULE PO SCH (05:50)
[2024-07-19] MEDS: chlordiazePOXIDE HCL 10 MG CAPSULE PO ONE (05:55)
[2024-07-19 13:08] VITALS: RESP 18
[2024-07-19 16:28] VITALS: BP 126/82; PULSE 81; TEMP 97.7
== END 2024-07-19 17:36 | disposition other institution (70) | DRG 774 ==
LOC: YASAS 09:43 → Y3N 11:16
PROVIDERS: ADMIT Allergy & Immunology; ATTEND Surgery
PROC: HZ2ZZZZ Detoxification Services for Substance Abuse Treatment (ICD-10-PCS; principal; 2024-07-14)
DX: F10.230 Alcohol dependence with withdrawal, uncomplicated (principal); F14.20 Cocaine dependence, uncomplicated; F17.210 Nicotine dependence, cigarettes, uncomplicated; F39 Unspecified mood [affective] disorder; J45.20 Mild intermittent asthma, uncomplicated; A53.9 Syphilis, unspecified; R76.8 Other specified abnormal immunological findings in serum
CPT/HCPCS: 36415; 80053; 80305; 85027; 86593; 86780; 87811

== ENCOUNTER 2024-07-19 17:45 | Inpatient (IN) | payer OTHER ==
[2024-07-19] MEDS ORDERED: ACETAMINOPHEN 325 MG TABLET (FP) PO PRN (18:25)
[2024-07-19] MEDS ORDERED: LOPERAMIDE HCL 2 MG CAPSULE PO PRN (18:25)
[2024-07-19] MEDS ORDERED: BENZONATATE 200 MG CAPSULE PO PRN (18:25)
[2024-07-19] MEDS ORDERED: MAG HYDROX/AL HYDROX/SIMETH 30 ML UNIT-DOSE CUP PO PRN (18:25)
[2024-07-19] MEDS ORDERED: guaiFENesin 600 MG TABLET.ER (FP) PO PRN (18:25)
[2024-07-19] MEDS ORDERED: IBUPROFEN 400 MG TABLET (FP) PO PRN (18:25)
[2024-07-19] MEDS ORDERED: hydrOXYzine PAMOATE 25 MG CAPSULE (FP) PO PRN (18:25)
[2024-07-19] MEDS ORDERED: NICOTINE POLACRILEX 2 MG GUM BUC PRN (18:25)
[2024-07-19] MEDS ORDERED: MAGNESIUM HYDROX 2400MG/30ML ORAL SUSPENSION 30 ML CUP PO PRN (18:25)
[2024-07-19] MEDS ORDERED: POLYETHYLENE GLYCOL (HEALTHYLAX) 3350 17 GM PACKET PO PRN (18:25)
[2024-07-19] MEDS ORDERED: IBUPROFEN 600 MG TABLET (FP) PO PRN (18:25)
[2024-07-19] MEDS ORDERED: BENZOCAINE/MENTHOL (CHLORASEPTIC ) LOZENGE MM PRN (18:25)
[2024-07-19] MEDS ORDERED: ALBUTEROL SO4 HFA INHALER IH PRN (18:27)
[2024-07-19] MEDS: THIAMINE 100 MG TABLET PO SCH (21:01)
[2024-07-19] MEDS: METHOCARBAMOL 500 MG TABLET PO PRN (21:02)
[2024-07-19] MEDS: MELATONIN 5 MG TABLETS PO SCH (21:03)
[2024-07-20] MEDS: PRENATAL VITAMINS W/ FOLIC ACID TABLET (FP) PO SCH (06:56)
[2024-07-20] MEDS: NICOTINE 14 MG/24 HOURS TOPICAL PATCH TD SCH (06:56)
[2024-07-20 06:57] VITALS: BP 116/69; PULSE 60; RESP 16; TEMP 97.3
== END 2024-07-20 16:41 | disposition left against medical advice (07) | DRG 770 ==
LOC: YASAS 17:45 → Y5N 17:46
PROVIDERS: ADMIT Allergy & Immunology; ATTEND Psychiatry & Neurology Pain Medicine
PROC: HZ42ZZZ Group Counseling for Substance Abuse Treatment, Cognitive-Behavioral (ICD-10-PCS; principal; 2024-07-19)
DX: F10.20 Alcohol dependence, uncomplicated (principal); F14.20 Cocaine dependence, uncomplicated; F17.220 Nicotine dependence, chewing tobacco, uncomplicated; J45.20 Mild intermittent asthma, uncomplicated
CPT/HCPCS: 36415; 86803

== ENCOUNTER 2024-09-24 09:01 | Inpatient (IN) | payer OTHER ==
[2024-09-24] MEDS ORDERED: POLYETHYLENE GLYCOL (HEALTHYLAX) 3350 17 GM PACKET PO PRN (09:23)
[2024-09-24] MEDS ORDERED: ACETAMINOPHEN 325 MG TABLET (FP) PO PRN (09:23)
[2024-09-24] MEDS ORDERED: MAGNESIUM HYDROX 2400MG/30ML ORAL SUSPENSION 30 ML CUP PO PRN (09:23)
[2024-09-24] MEDS ORDERED: DICYCLOMINE HCL 10 MG CAPSULE PO PRN (09:23)
[2024-09-24] MEDS ORDERED: P-EPHED 60MG/TRIPROLIDI 2.5MG TABLET PO PRN (09:23)
[2024-09-24] MEDS ORDERED: NALOXONE (NARCAN) HCL 4 MG/0.1 ML SPRAY NS PRN (09:23)
[2024-09-24] MEDS ORDERED: IBUPROFEN 600 MG TABLET (FP) PO PRN (09:23)
[2024-09-24] MEDS ORDERED: guaiFENesin 600 MG TABLET.ER (FP) PO PRN (09:23)
[2024-09-24] MEDS ORDERED: BISMUTH SUBSALICYLATE 262 MG/15 ML BTL PO PRN (09:23)
[2024-09-24] MEDS ORDERED: IBUPROFEN 400 MG TABLET (FP) PO PRN (09:23)
[2024-09-24] MEDS ORDERED: MAG HYDROX/AL HYDROX/SIMETH 30 ML UNIT-DOSE CUP PO PRN (09:23)
[2024-09-24] MEDS ORDERED: LOPERAMIDE HCL 2 MG CAPSULE PO PRN (09:23)
[2024-09-24] MEDS ORDERED: NICOTINE POLACRILEX 2 MG GUM BUC PRN (09:23)
[2024-09-24] MEDS ORDERED: NICOTINE POLACRILEX 2 MG LOZENGE BC PRN (09:23)
[2024-09-24] MEDS ORDERED: BENZONATATE 200 MG CAPSULE PO PRN (09:23)
[2024-09-24] MEDS ORDERED: ONDANSETRON *ODT* 4 MG TABLET SL PRN (09:23)
[2024-09-24 09:24] VITALS: BMI 25.7
[2024-09-24] MEDS: PRENATAL VITAMINS W/ FOLIC ACID TABLET (FP) PO SCH (11:21)
[2024-09-24] MEDS: hydrOXYzine PAMOATE 25 MG CAPSULE (FP) PO PRN (17:56)
[2024-09-24] MEDS: METHOCARBAMOL 500 MG TABLET PO PRN (17:56)
[2024-09-24] MEDS: chlordiazePOXIDE HCL 25 MG CAPSULE PO PRN (19:37)
[2024-09-24] MEDS: chlordiazePOXIDE HCL 25 MG CAPSULE PO SCH (22:17)
[2024-09-24] MEDS: THIAMINE 100 MG TABLET PO SCH (22:17)
[2024-09-24] MEDS: MELATONIN 5 MG TABLETS PO SCH (22:17)
[2024-09-25 10:11] LABS: HEMATOCRIT 43.8 % (35.4-49); HEMOGLOBIN 14.3 GM/dL (11.7-16.9); MCH 30.6 pg (25.7-33.7); MCHC 32.8 g/dl (32.0-35.9); MEAN CELL VOLUME 93.2 fl (80-96); MEAN PLT VOLUME 8.3 fl (7.5-11.1); PLATELET COUNT 287 10^3/uL (134-434); RBC 4.69 M/mm3 (4.00-5.60); RDW 13.5 % (11.9-15.9); WHITE BLOOD COUNT 8.7 K/mm3 (4.0-10.0)
[2024-09-25 12:45] LABS: POTASSIUM 4.2 mmol/L (3.5-5.1)
[2024-09-25 12:51] LABS: BLOOD UREA NITROGEN 22.1 mg/dL (7-18)
[2024-09-25 12:54] LABS: ALBUMIN 3.4 g/dl (3.4-5.0); CALCIUM 8.9 mg/dL (8.5-10.1)
[2024-09-25 12:57] LABS: CREATININE 0.6 mg/dL (0.55-1.3)
[2024-09-25 12:59] LABS: BILIRUBIN,TOTAL 0.4 mg/dL (0.2-1)
[2024-09-25 13:11] LABS: TOT PROT 6.3 g/dl (6.4-8.2)
[2024-09-26] MEDS: chlordiazePOXIDE HCL 25 MG CAPSULE PO SCH (05:33)
[2024-09-27] MEDS ORDERED: chlordiazePOXIDE HCL 10 MG CAPSULE PO PRN
[2024-09-27] MEDS: chlordiazePOXIDE HCL 10 MG CAPSULE PO SCH (05:30)
[2024-09-27] MEDS ORDERED: ALBUTEROL SO4 HFA INHALER IH PRN (11:43)
[2024-09-28] MEDS: chlordiazePOXIDE HCL 10 MG CAPSULE PO SCH (05:35)
[2024-09-28] MEDS: NALOXONE (NYS OPIOID OVERDOSE PROGRAM) 4 MG/0.1 ML SPRAY NS SCH (09:37)
[2024-09-28] MEDS: MIRTAZAPINE 15 MG TABLET (FP) PO SCH (22:29)
[2024-09-29] MEDS: chlordiazePOXIDE HCL 10 MG CAPSULE PO ONE (05:28)
[2024-09-29] MEDS: BENZOCAINE/MENTHOL (CHLORASEPTIC ) LOZENGE MM PRN (05:34)
[2024-09-29 09:08] VITALS: BP 116/70; PULSE 83; RESP 17; TEMP 98.8
== END 2024-09-29 12:20 | disposition other institution (70) | DRG 774 ==
LOC: YASAS 09:01 → Y6N 09:40
PROVIDERS: ADMIT Allergy & Immunology; ATTEND Allergy & Immunology
PROC: HZ2ZZZZ Detoxification Services for Substance Abuse Treatment (ICD-10-PCS; principal; 2024-09-24)
DX: F10.230 Alcohol dependence with withdrawal, uncomplicated (principal); F14.20 Cocaine dependence, uncomplicated; F12.20 Cannabis dependence, uncomplicated; F17.210 Nicotine dependence, cigarettes, uncomplicated; F19.280 Other psychoactive substance dependence with psychoactive substance-induced anxiety disorder; F19.282 Other psychoactive substance dependence with psychoactive substance-induced sleep disorder; J45.20 Mild intermittent asthma, uncomplicated
CPT/HCPCS: 36415; 80053; 80305; 80307; 85027

== ENCOUNTER 2024-09-29 11:56 | Inpatient (IN) | payer OTHER ==
[2024-09-29] MEDS ORDERED: MAG HYDROX/AL HYDROX/SIMETH 30 ML UNIT-DOSE CUP PO PRN (14:44)
[2024-09-29] MEDS ORDERED: hydrOXYzine PAMOATE 25 MG CAPSULE (FP) PO PRN (14:44)
[2024-09-29] MEDS ORDERED: BENZONATATE 200 MG CAPSULE PO PRN (14:44)
[2024-09-29] MEDS ORDERED: POLYETHYLENE GLYCOL (HEALTHYLAX) 3350 17 GM PACKET PO PRN (14:44)
[2024-09-29] MEDS ORDERED: MAGNESIUM HYDROX 2400MG/30ML ORAL SUSPENSION 30 ML CUP PO PRN (14:44)
[2024-09-29] MEDS ORDERED: guaiFENesin 600 MG TABLET.ER (FP) PO PRN (14:44)
[2024-09-29] MEDS ORDERED: NICOTINE POLACRILEX 2 MG GUM BUC PRN (14:44)
[2024-09-29] MEDS ORDERED: IBUPROFEN 400 MG TABLET (FP) PO PRN (14:44)
[2024-09-29] MEDS ORDERED: LOPERAMIDE HCL 2 MG CAPSULE PO PRN (14:44)
[2024-09-29] MEDS ORDERED: NICOTINE POLACRILEX 4 MG LOZENGE BC PRN (14:44)
[2024-09-29] MEDS: IBUPROFEN 600 MG TABLET (FP) PO PRN (15:00)
[2024-09-29] MEDS ORDERED: ALBUTEROL SO4 HFA INHALER IH PRN (16:18)
[2024-09-29] MEDS: THIAMINE 100 MG TABLET PO SCH (21:29)
[2024-09-29] MEDS: MELATONIN 5 MG TABLETS PO SCH (21:29)
[2024-09-30] MEDS: PRENATAL VITAMINS W/ FOLIC ACID TABLET (FP) PO SCH (06:28)
[2024-09-30] MEDS: BENZOCAINE/MENTHOL (CHLORASEPTIC ) LOZENGE MM PRN (06:28)
[2024-09-30] MEDS ORDERED: OXYMETAZOLINE 0.05% NASAL SOLUTION 15 ML BOTTLE NS PRN (12:23)
[2024-09-30] MEDS: BACLOFEN 10 MG TABLET (FP) PO SCH (13:02)
[2024-09-30] MEDS: chlordiazePOXIDE HCL 10 MG CAPSULE PO SCH (13:18)
[2024-09-30] MEDS: MELATONIN 5 MG TABLETS PO SCH (21:15)
[2024-09-30] MEDS: traZODone HCL 50 MG TABLET (FP) PO SCH (21:15)
[2024-10-03] MEDS: METHOCARBAMOL 500 MG TABLET PO PRN (21:15)
[2024-10-11 07:13] VITALS: RESP 17
[2024-10-11] MEDS: ACETAMINOPHEN 325 MG TABLET (FP) PO PRN (15:26)
[2024-10-12 07:22] VITALS: BP 136/78; PULSE 68; TEMP 97.5
== END 2024-10-12 09:23 | disposition home or self-care (01) | DRG 772 ==
LOC: YASAS 11:56 → Y3NR 11:58 → Y3E 17:59
PROVIDERS: ADMIT Psychiatry & Neurology Pain Medicine; ATTEND Psychiatry & Neurology Pain Medicine
PROC: HZ42ZZZ Group Counseling for Substance Abuse Treatment, Cognitive-Behavioral (ICD-10-PCS; principal; 2024-09-29)
DX: F10.20 Alcohol dependence, uncomplicated (principal); F14.20 Cocaine dependence, uncomplicated; F12.20 Cannabis dependence, uncomplicated; F17.210 Nicotine dependence, cigarettes, uncomplicated; F19.282 Other psychoactive substance dependence with psychoactive substance-induced sleep disorder; F19.280 Other psychoactive substance dependence with psychoactive substance-induced anxiety disorder; J45.20 Mild intermittent asthma, uncomplicated; J06.9 Acute upper respiratory infection, unspecified
CPT/HCPCS: 0241U-QW; J0475

== ENCOUNTER 2024-11-20 08:31 | Inpatient (IN) | payer OTHER ==
[2024-11-20 08:56] VITALS: BMI 26.0
[2024-11-20] MEDS ORDERED: BENZOCAINE/MENTHOL (CHLORASEPTIC ) LOZENGE MM PRN (09:19)
[2024-11-20] MEDS ORDERED: MAGNESIUM HYDROX 2400MG/30ML ORAL SUSPENSION 30 ML CUP PO PRN (09:19)
[2024-11-20] MEDS ORDERED: NICOTINE POLACRILEX 2 MG GUM BUC PRN (09:19)
[2024-11-20] MEDS ORDERED: P-EPHED 60MG/TRIPROLIDI 2.5MG TABLET PO PRN (09:19)
[2024-11-20] MEDS ORDERED: NALOXONE (NARCAN) HCL 4 MG/0.1 ML SPRAY NS PRN (09:19)
[2024-11-20] MEDS ORDERED: POLYETHYLENE GLYCOL (HEALTHYLAX) 3350 17 GM PACKET PO PRN (09:19)
[2024-11-20] MEDS ORDERED: MAG HYDROX/AL HYDROX/SIMETH 30 ML UNIT-DOSE CUP PO PRN (09:19)
[2024-11-20] MEDS ORDERED: BENZONATATE 200 MG CAPSULE PO PRN (09:19)
[2024-11-20] MEDS ORDERED: ACETAMINOPHEN 325 MG TABLET (FP) PO PRN (09:19)
[2024-11-20] MEDS ORDERED: DICYCLOMINE HCL 10 MG CAPSULE PO PRN (09:19)
[2024-11-20] MEDS ORDERED: LOPERAMIDE HCL 2 MG CAPSULE PO PRN (09:19)
[2024-11-20] MEDS ORDERED: ONDANSETRON *ODT* 4 MG TABLET SL PRN (09:19)
[2024-11-20] MEDS ORDERED: guaiFENesin 600 MG TABLET.ER (FP) PO PRN (09:19)
[2024-11-20] MEDS ORDERED: IBUPROFEN 600 MG TABLET (FP) PO PRN (09:19)
[2024-11-20] MEDS ORDERED: NICOTINE POLACRILEX 2 MG LOZENGE BC PRN (09:19)
[2024-11-20] MEDS ORDERED: BISMUTH SUBSALICYLATE 524 MG/30 ML PO PRN (09:19)
[2024-11-20] MEDS ORDERED: IBUPROFEN 400 MG TABLET (FP) PO PRN (09:19)
[2024-11-20] MEDS ORDERED: ALBUTEROL SO4 HFA INHALER IH PRN (09:21)
[2024-11-20] MEDS ORDERED: PRENATAL VITAMINS W/ FOLIC ACID TABLET (FP) PO ONE (10:21)
[2024-11-20] MEDS: PRENATAL VITAMINS W/ FOLIC ACID TABLET (FP) PO SCH (10:22)
[2024-11-20] MEDS: diazePAM 5 MG TABLET PO PRN (12:07)
[2024-11-20] MEDS: diazePAM 5 MG TABLET PO SCH (17:22)
[2024-11-20] MEDS ORDERED: MELATONIN 5 MG TABLETS PO SCH (22:00)
[2024-11-20] MEDS: THIAMINE 100 MG TABLET PO SCH (22:24)
[2024-11-20] MEDS: MELATONIN 5 MG TABLETS PO SCH (22:24)
[2024-11-20] MEDS: METHOCARBAMOL 500 MG TABLET PO PRN (22:25)
[2024-11-21 10:03] LABS: MCH 30.8 pg (25.7-33.7); MCHC 33.4 g/dl (32.0-35.9); MEAN CELL VOLUME 92.2 fl (80-96); MEAN PLT VOLUME 8.3 fl (7.5-11.1); PLATELET COUNT 262 10^3/uL (134-434); RBC 4.56 M/mm3 (4.00-5.60); RDW 12.8 % (11.9-15.9); WHITE BLOOD COUNT 6.5 K/mm3 (4.0-10.0)
[2024-11-21 10:38] LABS: ALBUMIN 3.4 g/dl (3.4-5.0); BLOOD UREA NITROGEN 15.4 mg/dL (7-18); CALCIUM 8.5 mg/dL (8.5-10.1)
[2024-11-21 10:41] LABS: CREATININE 0.6 mg/dL (0.55-1.3)
[2024-11-21 10:42] LABS: BILIRUBIN,TOTAL 0.3 mg/dL (0.2-1)
[2024-11-21 10:43] LABS: TOT PROT 6.5 g/dl (6.4-8.2)
[2024-11-21 10:46] LABS: POTASSIUM 4.2 mmol/L (3.5-5.1)
[2024-11-22] MEDS: diazePAM 5 MG TABLET PO SCH (06:09)
[2024-11-23] MEDS: diazePAM 5 MG TABLET PO SCH (05:49)
[2024-11-23] MEDS ORDERED: NALTREXONE HCL 50 MG TABLET PO ONE (16:00)
[2024-11-23] MEDS: NALTREXONE HCL 50 MG TABLET PO ONE (18:20)
[2024-11-23] MEDS: MIRTAZAPINE 15 MG TABLET (FP) PO SCH (22:39)
[2024-11-24] MEDS: diazePAM 5 MG TABLET PO ONE (05:59)
[2024-11-24 07:18] VITALS: RESP 18
[2024-11-24 09:06] VITALS: BP 110/69; PULSE 79; TEMP 97.8
[2024-11-24] MEDS: NALTREXONE HCL 50 MG TABLET PO SCH (09:08)
== END 2024-11-24 12:56 | disposition other institution (70) | DRG 774 ==
LOC: YASAS 08:31 → Y6N 10:14
PROVIDERS: ADMIT Allergy & Immunology; ATTEND Family Medicine Addiction Medicine
PROC: HZ2ZZZZ Detoxification Services for Substance Abuse Treatment (ICD-10-PCS; principal; 2024-11-20)
DX: F10.230 Alcohol dependence with withdrawal, uncomplicated (principal); F14.20 Cocaine dependence, uncomplicated; F17.210 Nicotine dependence, cigarettes, uncomplicated; G47.00 Insomnia, unspecified; J45.990 Exercise induced bronchospasm; S00.03XA Contusion of scalp, initial encounter; Y04.2XXA Assault by strike against or bumped into by another person, initial encounter; Y92.238 Other place in hospital as the place of occurrence of the external cause
CPT/HCPCS: 36415; 80053; 80305; 80307; 85027; 86593; 86780; 87811; 93005; 93010

== ENCOUNTER 2024-11-24 13:26 | Inpatient (IN) | payer OTHER ==
[2024-11-24] MEDS ORDERED: POLYETHYLENE GLYCOL (HEALTHYLAX) 3350 17 GM PACKET PO PRN (14:39)
[2024-11-24] MEDS ORDERED: MAGNESIUM HYDROX 2400MG/30ML ORAL SUSPENSION 30 ML CUP PO PRN (14:39)
[2024-11-24] MEDS ORDERED: BENZOCAINE/MENTHOL (CHLORASEPTIC ) LOZENGE MM PRN (14:39)
[2024-11-24] MEDS ORDERED: NICOTINE POLACRILEX 4 MG GUM BUC PRN (14:39)
[2024-11-24] MEDS ORDERED: ACETAMINOPHEN 325 MG TABLET (FP) PO PRN (14:39)
[2024-11-24] MEDS ORDERED: IBUPROFEN 600 MG TABLET (FP) PO PRN (14:39)
[2024-11-24] MEDS ORDERED: IBUPROFEN 400 MG TABLET (FP) PO PRN (14:39)
[2024-11-24] MEDS ORDERED: NALOXONE (NARCAN) HCL 4 MG/0.1 ML SPRAY NS PRN (14:39)
[2024-11-24] MEDS ORDERED: NICOTINE 21 MG/24 HOURS TOPICAL PATCH TD PRN (14:39)
[2024-11-24] MEDS ORDERED: LOPERAMIDE HCL 2 MG CAPSULE PO PRN (14:39)
[2024-11-24] MEDS ORDERED: MAG HYDROX/AL HYDROX/SIMETH 30 ML UNIT-DOSE CUP PO PRN (14:39)
[2024-11-24] MEDS ORDERED: guaiFENesin 600 MG TABLET.ER (FP) PO PRN (14:39)
[2024-11-24] MEDS ORDERED: NALOXONE HCL 0.4 MG/ML VIAL IVPUSH PRN (14:39)
[2024-11-24] MEDS ORDERED: NICOTINE POLACRILEX 4 MG LOZENGE BC PRN (14:39)
[2024-11-24] MEDS ORDERED: BENZONATATE 200 MG CAPSULE PO PRN (14:39)
[2024-11-24] MEDS: hydrOXYzine PAMOATE 25 MG CAPSULE (FP) PO PRN (19:12)
[2024-11-24] MEDS: THIAMINE 100 MG TABLET PO SCH (21:11)
[2024-11-24] MEDS: MELATONIN 5 MG TABLETS PO SCH (21:11)
[2024-11-24] MEDS: METHOCARBAMOL 500 MG TABLET PO PRN (21:12)
[2024-11-24] MEDS: traZODone HCL 50 MG TABLET (FP) PO SCH (21:12)
[2024-11-25] MEDS: PRENATAL VITAMINS W/ FOLIC ACID TABLET (FP) PO SCH (09:57)
[2024-11-25] MEDS: NALTREXONE HCL 50 MG TABLET PO SCH (09:57)
[2024-12-01] MEDS ORDERED: ALBUTEROL SO4 HFA INHALER IH PRN (14:02)
[2024-12-01] MEDS: BACLOFEN 10 MG TABLET (FP) PO SCH (14:50)
[2024-12-05 06:45] VITALS: PULSE 60
[2024-12-07 05:42] VITALS: BP 128/67; RESP 16; TEMP 97.7
== END 2024-12-07 09:29 | disposition home or self-care (01) | DRG 772 ==
LOC: YASAS 13:26 → Y3W 13:27
PROVIDERS: ADMIT Psychiatry & Neurology Pain Medicine; ATTEND Psychiatry & Neurology Pain Medicine
PROC: HZ42ZZZ Group Counseling for Substance Abuse Treatment, Cognitive-Behavioral (ICD-10-PCS; principal; 2024-11-24)
DX: F10.20 Alcohol dependence, uncomplicated (principal); F14.20 Cocaine dependence, uncomplicated; F17.210 Nicotine dependence, cigarettes, uncomplicated; F19.280 Other psychoactive substance dependence with psychoactive substance-induced anxiety disorder; F19.282 Other psychoactive substance dependence with psychoactive substance-induced sleep disorder; G47.00 Insomnia, unspecified; J45.20 Mild intermittent asthma, uncomplicated; Z86.19 Personal history of other infectious and parasitic diseases
CPT/HCPCS: J0475